=== PATIENT | female | born 1960 | race Caucasian/White ===

== ENCOUNTER 2017-04-21 08:44 | Inpatient (IN) | payer BC ==
[2017-04-10 09:32] LABS: BASOPHILS % 0.3 % (0.0-2.0); EOSINOPHILS # 0.3 10^3/ul (0.0-0.5); EOSINOPHILS % 3.6 % (0.0-7.0); HEMATOCRIT 41.9 % (37.0-47.0); HEMOGLOBIN 13.8 g/dl (12.0-16.0); LYMPHOCYTES # 2.6 10^3/ul (0.8-2.9); LYMPHOCYTES % 36.6 % (15.0-51.0); MEAN CORPUSCULAR HEMOGLOBIN 29.2 pg (29.0-33.0); MEAN CORPUSCULAR HGB CONC 32.9 g/dl (32.0-37.0); MEAN CORPUSCULAR VOLUME 88.6 fl (82.0-101.0); MEAN PLATELET VOLUME 9.1 fl (7.4-10.4); MONOCYTE # 0.4 10^3/ul (0.3-0.9); MONOCYTES % 6.1 % (0.0-11.0); NEUTROPHILS % 53.3 % (39.0-77.0); PLATELET COUNT 325 10^3/UL (140-415); RED BLOOD COUNT 4.73 10^6/ul (4.20-5.40); RED CELL DISTRIBUTION WIDTH 13.2 % (11.5-14.5)
[2017-04-10 09:43] LABS: ADD UMIC YES; UR ASCORBIC ACID NEGATIVE (NEGATIVE); UR BACTERIA FEW /HPF (NONE SEEN); UR BILIRUBIN (Dip) NEGATIVE (NEGATIVE); UR BLOOD (Dip) 2+ mg/dL (NEGATIVE); UR BUDDING YEAST FEW /HPF (NONE SEEN); UR CLARITY SLIGHTLY CLOUDY (CLEAR); UR COLOR YELLOW (YELLOW); UR GLUCOSE (Dip) NEGATIVE (NEGATIVE); UR KETONES (Dip) NEGATIVE (NEGATIVE); UR LEUKOCYTE ESTERASE (Dip) 3+ Leu/ul (NEGATIVE); UR NITRITE (Dip) NEGATIVE (NEGATIVE); UR RBC 26 /HPF (0-5); UR SPECIFIC GRAVITY (Dip) 1.017 (1.003-1.030); UR SQUAMOUS EPITHELIAL CELL FEW /HPF (FEW); UR TOTAL PROTEIN (Dip) NEGATIVE (NEGATIVE); UR UROBILINOGEN (Dip) NEGATIVE (NEGATIVE)
[2017-04-10 09:59] LABS: INR 0.95; PARTIAL THROMBOPLASTIN TIME 27.3 Sec (25.0-35.0); PROTIME 12.7 Sec (12.2-14.2)
--- NOTE | 2017-04-10 10:03 | RADRPT ---
PROCEDURE: XR Chest 1 View. CLINICAL INDICATION: Abnormal breath sounds, preop. TECHNIQUE: PA view of the chest was obtained. COMPARISON: None. FINDINGS: The heart size is within normal limits. Calcified atherosclerosis is noted in the aorta. Elevated r ight hemidiaphragm is identified. No consolidations are identified. No pneumothorax is seen. [place] us structures are intact. IMPRESSION: Calcified atherosclerosis in the aorta. Elevated right hemidiaphragm. Clear lungs. RPTAT: AA .Lopez May MD, Date Time Electronically viewed and signed by .Lopez May MD, on 04/10/2017 10:03 .P/
[2017-04-10 10:08] LABS: ALBUMIN 4.2 g/dl (3.3-4.9); ALBUMIN/GLOBULIN RATIO 1.2; BILIRUBIN,INDIRECT 0.2 mg/dl (0-1.1); BILIRUBIN,TOTAL 0.2 mg/dl (0.2-1.3); CREATININE 0.85 mg/dl (0.44-1.00); POTASSIUM 4.1 mmol/L (3.5-5.1); TOTAL PROTEIN 7.7 g/dl (6.1-8.1)
[2017-04-10 10:35] LABS: CANCER ANTIGEN 125 27.9 U/ml (0.0-35.0)
--- NOTE | 2017-04-13 11:09 | RADRPT ---
Vent Rate: 67 bpm RR Interval: 0 msec ME Interval: 158 msec QRS Duration: 84 msec QT Interval: 408 msec QTC Interval: 431 msec P-R-T [place]: 34 - 39 - 59 degrees Normal sinus rhythm Normal ECG Electronically Signed By: Tio Judd [id number]
[2017-04-21] VITALS (15 sets, daily range): BP systolic 118–146; BP diastolic 67–93; PULSE 85–100; RESP 15–31; Ht 162.6 cm; Wt 114.8 kg
[~2017-04-21] VITALS: Ht 162.6 cm; Wt 114.8 kg
[~2017-04-21 08:44] MED LIST: CEFAZOLIN 2 GM/50 ML (PMX) 50 ML IVPB SCH; D5-NS + KCL 20 MEQ 1,000 ML IV SCH; LIDOCAINE 2% (SDV) 5 ML INJ ONE; Metronidazole 500 MG in NS 100 ML IVPB SCH
[2017-04-21] MEDS ORDERED: MIDAZOLAM 1 MG/ML 2 ML INJ ONE (12:28)
[2017-04-21] MEDS ORDERED: METOCLOPRAMIDE 10 MG INJ ONE (12:28)
[2017-04-21] MEDS ORDERED: ROCURONIUM 50 MG INJ ONE ×2 (12:28→15:54)
[2017-04-21] MEDS ORDERED: PROPOFOL 20 ML ONE ×2 (12:28→14:28)
--- NOTE | 2017-04-21 12:50 | HPN ---
Date/Time of Note Date/Time of Note DATE: 04/21/17 TIME: 12:50 Interval H&P Admission Note Pt. seen H&P reviewed: No system changes DEIDRA GUZMAN MD Apr 21, 2017 12:50
--- NOTE | 2017-04-21 13:01 | HP ---
Date/Time of Note Date/Time of Note DATE: 04/21/17 TIME: 13:00 Assessment/Plan VTE Prophylaxis VTE Prophylaxis Intervention: SCD's Lines/Catheters [facility] Peripheral IV HPI/ROS Admit Date/Time Admit Date/Time Apr 21, 2017 at 09:43 Hx of Present Illness Deidra Guzman M.D. [facility] History and Physical Examination Susana Medellin Apr 17, 2017 Age:57 :1960 Physicians: Client Service Representative:Dr. Zaragoza Medical Care Evaluation Specialist Oncologist Referring MD: History of the Present Illness: This is a 57 female with a grade 1-2 endometrial cancer recently diagnosed by d/c endometrial biopsy. G 10 P 8 Ab 2 LMP: 2012 / Currently Spotting Medical History: HTN Surgical: C/S x 3 , 1959 Pyloric Stenosis Medications: 03/17/17 Xanax 0.25 mg tablet 1 tablet by mouth Select Frequency prn Flu yes, 2015, Pneumococcal yes, 2008 Colonoscopy: never Allergies: 03/17/17 Codeine Family History: Noncontributory Social History: Noncontributory Review of Systems: Negative except for above noted Physical Examination Vitals (04/17/2017): Weight 254, Height 64, BP 118/72, BMI 43.6. General: Alert. HEENT: Pupils are equal, round, reactive to light and accommodation. Neck: Supple with no masses of lymphadenopathy. Breast: Deferred due to recent examination and responsibility of primary care physician. Chest: Clear to auscultation and percussion with no rales, ronchi, or wheeze. Heart: Normal rhythm with no murmur. Abdominal exam: nontender, nondistended, no masses, no ascites. location: N/A Pelvic exam: Uterus enlgd and glubular, no masses or cul-de-sac nodularity noted Rectal: confirmatory with pelvic exam. Neurological: Grossly intact Assessment: endometrial cancer stage to be determined Plan: TLH/BSO LND possible lapartotomy. All risks and benefits of this procedure have been discussed in detail with the patient, as well as alternative treatment strategies and their implications. The patient is aware that there is some possibility of a blood transfusion and its associated risks and benefits. She wishes to proceed and gives her informed consent. Deidra Guzman M.D. PMH/Family/Social Social History Smoking Status: Never smoker Exam/Review of Systems Vital Signs Vitals Vital Signs Date Time Temp Pulse Resp B/P Pulse Ox O2 Delivery O2 Flow Rate FiO2 04/21/17 10:54 98.9 85 18 137/78 95 Room Air Medications Medications Current Medications Metronidazole 100 ml @ 100 mls/hr PREOP IVPB ; Start 04/21/17 at 06:00; Stop at 16:00 Cefazolin Sodium/ Dextrose 50 ml @ 100 mls/hr PREOP IVPB ; Start 04/21/17 at 06 :00; Stop 04/21/17 at 16:00 Potassium Chloride/Dextrose/ Sod Cl (D5-NS + KCl 20 Meq) 1,000 ml @ 100 mls/hr Q10H IV ; Start 04/21/17 at 06:00; Stop 04/21/17 at 15:59 DEIDRA GUZMAN MD Apr 21, 2017 13:01
[2017-04-21] MEDS ORDERED: FENTAnyl 50 MCG/ML VIAL ONE (13:44)
[2017-04-21] MEDS ORDERED: morphine SULFATE/PF (10 MG/10 ML) INJ ONE (14:16)
[2017-04-21] MEDS ORDERED: DEXAMETHASONE 4 MG/ML 1 ML INJ ONE (14:20)
[2017-04-21] MEDS ORDERED: ROPIVACAINE 0.2% 20 ML VIAL ONE (14:24)
[2017-04-21] MEDS ORDERED: CEFAZOLIN 1 GM INJ ONE (14:26)
[2017-04-21] MEDS ORDERED: metroNIDAZOLE 500 MG/NS (PMX) 100 ML IVPB ONE (14:26)
[2017-04-21] MEDS ORDERED: SUCCINYLCHOLINE CHLORIDE 100 MG/5 ML SYG IV ONE (14:39)
[2017-04-21] MEDS ORDERED: THROMBIN 5000 UNIT VIAL ONE ×2 (14:53→19:12)
[2017-04-21] MEDS ORDERED: METHYLENE BLUE 1% 10 ML INJ ONE (14:53)
[2017-04-21] MEDS ORDERED: METOPROLOL 5 MG INJ ONE (17:22)
[2017-04-21] MEDS ORDERED: hydrALAzine 20 MG INJ IV PRN (18:00)
[2017-04-21] MEDS ORDERED: MEPERIDINE 25 MG INJ IV PRN (18:00)
[2017-04-21] MEDS ORDERED: HYDROmorphONE (0.2 MG/ML) 10ML SYG IV PRN ×3 (18:00)
[2017-04-21] MEDS ORDERED: METOCLOPRAMIDE 10 MG INJ IV PRN (18:00)
[2017-04-21] MEDS ORDERED: ONDANSETRON 4 MG INJ IV PRN (18:00)
[2017-04-21] MEDS ORDERED: DIPHENHYDRAMINE 50 MG INJ IV PRN (18:00)
[2017-04-21] MEDS ORDERED: LABETALOL HCL 20MG INJ IV PRN (18:00)
[2017-04-21] MEDS ORDERED: ROPIVACAINE 0.5 % 30 ML VIAL ONE (19:14)
[2017-04-21] MEDS ORDERED: HEMOSTATIC MATRIX SYG ZFS ONE (19:15)
[2017-04-21] MEDS ORDERED: NEOSTIGMINE 3 MG/3 ML SYRINGE ONE (20:00)
[2017-04-21] MEDS ORDERED: GLYCOPYRROLATE 1 MG INJ ONE (20:00)
[2017-04-21] MEDS ORDERED: MEPERIDINE 100 MG INJ ONE (20:19)
[2017-04-21] MEDS ORDERED: CEFAZOLIN 1 GM in SOD CHLORIDE 0.9% 100 ML IVPB SCH (21:00)
[2017-04-21] MEDS ORDERED: morphine 2 MG INJ IV PRN (21:00)
--- NOTE | 2017-04-21 21:04 | SIPON ---
Date/Time of Note Date/Time of Note DATE: 04/21/17 TIME: 21:02 Operative Report Preoperative Diagnosis endometrial cancer Postoperative Diagnosis same with morbid obesity and ureteral stricture Operation/Procedure Performed TLH/BSO/LND and UDx2 Surgeon see signature line offset assistant press operator Nik Anesthesia: other Estimated blood loss: 250 - 300 ml's Transfusion Required none Specimen multiple Grafts/Implants none Complications none DEIDRA GUZMAN MD Apr 21, 2017 21:04
[2017-04-21] MEDS: metroNIDAZOLE 500 MG/NS (PMX) 100 ML IVPB SCH (21:07)
[2017-04-21 21:12] LABS: ADD UMIC YES; UR ASCORBIC ACID 40 mg/dL (NEGATIVE); UR BACTERIA FEW /HPF (NONE SEEN); UR BILIRUBIN (Dip) NEGATIVE (NEGATIVE); UR BLOOD (Dip) 1+ mg/dL (NEGATIVE); UR CLARITY CLEAR (CLEAR); UR COLOR YELLOW (YELLOW); UR GLUCOSE (Dip) 3+ mg/dL (NEGATIVE); UR KETONES (Dip) TRACE mg/dL (NEGATIVE); UR LEUKOCYTE ESTERASE (Dip) NEGATIVE Leu/ul (NEGATIVE); UR MUCUS FEW /HPF (NONE SEEN); UR NITRITE (Dip) NEGATIVE (NEGATIVE); UR RBC 31 /HPF (0-5); UR SPECIFIC GRAVITY (Dip) 1.014 (1.003-1.030); UR TOTAL PROTEIN (Dip) NEGATIVE (NEGATIVE); UR UROBILINOGEN (Dip) NEGATIVE (NEGATIVE)
[2017-04-21 21:33] LABS: ABNORMAL IP MESSAGE 1; BASOPHILS % 0.1 % (0.0-2.0); HEMATOCRIT 27.9 % (37.0-47.0); HEMOGLOBIN 8.7 g/dl (12.0-16.0); LYMPHOCYTES # 0.6 10^3/ul (0.8-2.9); LYMPHOCYTES % 5.6 % (15.0-51.0); MEAN CORPUSCULAR HEMOGLOBIN 29.2 pg (29.0-33.0); MEAN CORPUSCULAR HGB CONC 31.2 g/dl (32.0-37.0); MEAN CORPUSCULAR VOLUME 93.6 fl (82.0-101.0); MONOCYTE # 0.5 10^3/ul (0.3-0.9); MONOCYTES % 4.8 % (0.0-11.0); NEUTROPHIL # 9.4 10^3/ul (1.6-7.5); NEUTROPHILS % 89.1 % (39.0-77.0); PLATELET COUNT 172 10^3/UL (140-415); RED BLOOD COUNT 2.98 10^6/ul (4.20-5.40); RED CELL DISTRIBUTION WIDTH 13.3 % (11.5-14.5); WHITE BLOOD COUNT 10.5 10^3/ul (4.8-10.8)
[2017-04-21 21:38] LABS: HOLD TRANSMISSIONS 1; POSITIVE DIFF @See below
[2017-04-21] MEDS ORDERED: CEFAZOLIN 1 GM/50 ML (PMX) 50 ML IVPB ONE (21:45)
[2017-04-21] MEDS ORDERED: SOD CHLORIDE 0.9% 250 ML IV* ONE (21:48)
[2017-04-21] MEDS: FAMOTIDINE 20 MG INJ IV SCH (22:49)
[2017-04-21 23:27] LABS: INR 0.94; PROTIME 12.6 Sec (12.2-14.2)
[2017-04-21 23:28] LABS: CALCIUM 8.7 mg/dl (8.4-10.2); CREATININE 0.69 mg/dl (0.44-1.00); POTASSIUM 4.4 mmol/L (3.5-5.1)
[2017-04-22] VITALS (7 sets, daily range): BP systolic 115–136; BP diastolic 68–98; PULSE 92–101; RESP 18–20
[2017-04-22] MEDS ORDERED: CEFAZOLIN 1 GM/50 ML (PMX) 50 ML IVPB SCH
[2017-04-22] MEDS: HYDROCODONE/APAP (5/325) TAB PO PRN ×4 (01:08→18:52)
[2017-04-22] MEDS: POTASSIUM CHLORIDE 20 MEQ in LACTATED RINGER'S 1,000 ML IV SCH ×3 (01:13→15:50)
[2017-04-22] MEDS: metroNIDAZOLE 500 MG/NS (PMX) 100 ML IVPB SCH ×2 (05:06→12:16)
[2017-04-22 05:38] LABS: HEMATOCRIT 42.3 % (37.0-47.0); HEMOGLOBIN 14.2 g/dl (12.0-16.0); LYMPHOCYTES # 0.7 10^3/ul (0.8-2.9); LYMPHOCYTES % 7.7 % (15.0-51.0); MEAN CORPUSCULAR HEMOGLOBIN 28.7 pg (29.0-33.0); MEAN CORPUSCULAR HGB CONC 33.6 g/dl (32.0-37.0); MEAN CORPUSCULAR VOLUME 85.6 fl (82.0-101.0); MEAN PLATELET VOLUME 9.7 fl (7.4-10.4); MONOCYTE # 0.6 10^3/ul (0.3-0.9); NEUTROPHILS % 86.2 % (39.0-77.0); PLATELET COUNT 297 10^3/UL (140-415); RED BLOOD COUNT 4.94 10^6/ul (4.20-5.40); RED CELL DISTRIBUTION WIDTH 13.8 % (11.5-14.5); WHITE BLOOD COUNT 9.2 10^3/ul (4.8-10.8)
[2017-04-22 05:45] LABS: INR 1.02; PROTIME 13.4 Sec (12.2-14.2)
[2017-04-22] MEDS: CEFAZOLIN 1 GM/50 ML (PMX) 50 ML IVPB SCH ×2 (06:36→14:19)
[2017-04-22 06:50] LABS: CALCIUM 8.8 mg/dl (8.4-10.2); CREATININE 0.63 mg/dl (0.44-1.00); POTASSIUM 4.4 mmol/L (3.5-5.1)
[2017-04-22] MEDS: FAMOTIDINE 20 MG INJ IV SCH ×2 (09:30→20:15)
[2017-04-22] MEDS: ALPRAZOLAM 0.25 MG TAB PO PRN ×2 (11:10→21:25)
--- NOTE | 2017-04-22 11:44 | HP ---
DATE OF ADMISSION: 04/21/2017 CHIEF COMPLAINT: The patient is a 57-year-old female, with grade 1-2 endometrial cancer recently diagnosis by endometrial biopsy. The patient is being followed by Dr. Junior Robledo from a [employer] standpoint. The patient was subsequently referred to Dr. Shin. The patient was brought into the hospital and underwent laparoscopic total hysterectomy, bilateral salpingo-oophorectomy, lymph node dissection and ureter dissection. The patient still has postoperative pain, although she is trying only oral narcotics. The patient denies any chest pain or shortness of breath. No recent fever or chills. No history of focal weakness. The patient remains awake, alert. The patient did not have any leg pain or leg edema. The patient remains awake, alert, except for postoperative pain. Rest of the review of systems unremarkable. The patient does take occasional Xanax to help her sleep. PAST MEDICAL HISTORY: As stated above. SOCIAL HISTORY: No smoking. No alcohol. FAMILY HISTORY: Noncontributory. ALLERGIES: THE PATIENT STATES SEVERAL YEARS AGO SHE TOOK CODEINE AND HAD RASH, ALTHOUGH SHE IS ABLE TO TOLERATE [place] WITHOUT ANY DIFFICULTY. PHYSICAL EXAMINATION: GENERAL: Patient conscious, awake, alert. VITAL SIGNS: Temperature 98.9, pulse 76, respiration 18, blood pressure 136/75, O2 sat 98 percent on 1 L nasal cannula. HEENT: No eye discharge or redness. normal. NECK: No mass. CHEST: Fairly clear. CVS: S1, S2 normal. No murmur. ABDOMEN: Patient is status post surgery. EXTREMITIES: No edema. Pedal pulses palpable. SKIN: Without acute rash. NEUROLOGIC: Patient is awake, alert, fairly oriented, with no gross focal deficits. DATA: WBC 9.2, hemoglobin 14.2, platelet 297. Sodium 137, potassium 4.4, BUN 11, creatinine 0.6, glucose 124, calcium 8.8. IMPRESSION: Endometrial cancer, stage to be determined, status post laparoscopic hysterectomy, bilateral salpingo-oophorectomy, lymph node dissection and ureteral dissection. PLAN: Patient will be admitted on medical floor. Patient will be given clear liquid diet for now. The patient will be started on IV fluid, IV Pepcid and we will use SCDs for DVT prophylaxis. We will continue [place] and morphine for pain control. We will add senna prophylactically. We will continue Xanax on p.r.n. basis and continue IV cefazolin and Flagyl as per protocol. We will continue to follow. Dictated By: Tavares Thompson MD /nick/[email or web address] /Document#: [id number]
[2017-04-22] MEDS: SENNA TAB PO SCH ×2 (12:16→20:15)
--- NOTE | 2017-04-22 16:06 | PN ---
Date/Time of Note Date/Time of Note DATE: 04/22/17 TIME: 16:00 Assessment/Plan VTE Prophylaxis VTE Prophylaxis Intervention: SCD's Lines/Catheters IV Catheter Type (from Nrs): [place] Urinary Cath still in place: No Assessment/Plan Assessment/Plan -Endometrial cancer, stage to be determined - status post laparoscopic hysterectomy, bilateral salpingo-oophorectomy,lymph node dissection and ureteral dissection. - per surgery - [place] and morphine for pain control. - clear liquid diet for now. - IV fluid, IV Pepcid - SCDs for DVT prophylaxis. - UTI- yeast/bacteria - on Flagyl - Ceftriaxone Plan of care jonh Calvert Subjective 24 Hr Interval Summary Respiratory: no complaints Cardiovascular: no complaints Gastrointestinal: pain Genitourinary: no complaints Musculoskeletal: no complaints Exam/Review of Systems Vital Signs Vitals Vital Signs Date Time Temp Pulse Resp B/P Pulse Ox O2 Delivery O2 Flow Rate FiO2 04/22/17 08:30 98.9 76 18 136/75 96 04/22/17 08:00 Nasal Cannula 1.0 Intake and Output 04/21/17 04/21/17 04/22/17 15:00 23:00 07:00 Intake Total 2300 ml 985 ml Output Total 650 ml 900 ml Balance 1650 ml 85 ml Exam Constitutional: alert, well developed Respiratory: clear to auscultation, diminished breath sounds Cardiovascular: nl pulses, regular rate and rhythm Gastrointestinal: other, soft Musculoskeletal: nl extremities to inspection Results Result Diagram: 04/22/17 0440 04/22/17 0439 Results 24 hrs Laboratory Tests Test 04/21/17 20:45 04/21/17 21:00 04/21/17 22:27 04/22/17 04:39 Urine Color YELLOW Urine Clarity CLEAR Urine pH 5.0 Urine Specific [place] 1.014 Urine Ketones TRACE A Urine Nitrite NEGATIVE Urine Bilirubin NEGATIVE Urine Urobilinogen NEGATIVE Urine Leukocyte Esterase NEGATIVE Urine Microscopic RBC 31 H Urine Microscopic WBC 1 Urine Bacteria FEW A Urine Mucus FEW A Urine Hemoglobin 1+ H Urine Glucose 3+ H Urine Total Protein NEGATIVE White Blood Count 10.5 # Red Blood Count 2.98 #L Hemoglobin 8.7 #L Hematocrit 27.9 #L Mean Corpuscular Volume 93.6 Mean Corpuscular Hemoglobin 29.2 Mean Corpuscular Hemoglobin Concent 31.2 L Red Cell Distribution Width 13.3 Platelet Count 172 # Mean Platelet Volume 9.0 Neutrophils % 89.1 H Lymphocytes % 5.6 L Monocytes % 4.8 Eosinophils % 0.0 Basophils % 0.1 Nucleated Red Blood Cells % 0.0 Neutrophils # 9.4 H Lymphocytes # 0.6 L Monocytes # 0.5 Eosinophils # 0.0 Basophils # 0.0 Nucleated Red Blood Cells # 0.0 CBC Results Faxed/Phoned 1 *H Sodium Level 137 137 Potassium Level 4.4 4.4 Chloride Level 99 104 Carbon Dioxide Level 24 25 Anion Gap 18 H 12 Blood Urea Nitrogen 13 11 Creatinine 0.69 0.63 Glucose Level 222 H 124 # Calcium Level 8.7 8.8 Prothrombin Time 12.6 13.4 Prothrombin Time Ratio 1.0 1.0 INR International Normalized Ratio 0.94 1.02 Test 04/22/17 04:40 White Blood Count 9.2 Red Blood Count 4.94 # Hemoglobin 14.2 # Hematocrit 42.3 # Mean Corpuscular Volume 85.6 Mean Corpuscular Hemoglobin 28.7 L Mean Corpuscular Hemoglobin Concent 33.6 Red Cell Distribution Width 13.8 Platelet Count 297 # Mean Platelet Volume 9.7 Neutrophils % 86.2 H Lymphocytes % 7.7 L Monocytes % 6.0 Eosinophils % 0.0 Basophils % 0.0 Nucleated Red Blood Cells % 0.0 Neutrophils # 8.0 H Lymphocytes # 0.7 L Monocytes # 0.6 Eosinophils # 0.0 Basophils # 0.0 Nucleated Red Blood Cells # 0.0 Medications Medications Current Medications Metronidazole (Flagyl 500 Mg (Pmx)) 100 ml @ 100 mls/hr Q8H IVPB Last administered on 04/22/17 12:16; Admin Dose 100 MLS/HR; Start 04/21/17 at 21:00 ; Stop 04/22/17 at 20:59 Morphine Sulfate (morphine) 2 mg Q2H PRN IV PAIN LEVEL 6-10; Start 04/21/17 at 21:00 Acetaminophen/ Hydrocodone Bitart ([place] (5/325)) 1 tab Q6H PRN PO PAIN LEVEL 6 -10 Last administered on 04/22/17 12:51; Admin Dose 1 TAB; Start 04/21/17 at 21 :00 Famotidine 20 mg 20 mg Q12 IV Last administered on 04/22/17 09:30; Admin Dose 20 MG; Start 04/21/17 at 21:00 Potassium Chloride/Lactated Ringer's (KCl/Lr) 1,010 ml @ 100 mls/hr Q10H6M IV Last administered on 04/22/17 15:50; Admin Dose 100 MLS/HR; Start 04/21/17 at 20:35 Alprazolam (Xanax) 0.25 mg BID PRN PO ANXIETY Last administered on 04/22/17 11 :10; Admin Dose 0.25 MG; Start 04/22/17 at 11:00 Senna (Senokot) 2 tab BID PO Last administered on 04/22/17 12:16; Admin Dose 2 TAB; Start 04/22/17 at 11:30 MEGHAN SOLIMAN Apr 22, 2017 16:06
--- NOTE | 2017-04-22 18:49 | PN ---
Date/Time of Note Date/Time of Note DATE: 04/22/17 TIME: 18:44 Assessment/Plan VTE Prophylaxis VTE Prophylaxis Intervention: SCD's Lines/Catheters IV Catheter Type (from Nrs): Peripheral IV Urinary Cath still in place: No Assessment/Plan Chief Complaint/Hosp Course Endometrial Cancer Problems: Assessment/Plan A- doing well P- adv diet and decrease IV. Discussed surgery in detail. Subjective 24 Hr Interval Summary Free Text/Dictation Pain well controlled and suggestion of flatus. Not OOB. Exam/Review of Systems Vital Signs Vitals Vital Signs Date Time Temp Pulse Resp B/P Pulse Ox O2 Delivery O2 Flow Rate FiO2 04/22/17 16:09 97.9 83 20 115/68 96 04/22/17 08:00 Nasal Cannula 1.0 Intake and Output 04/21/17 04/21/17 04/22/17 15:00 23:00 07:00 Intake Total 2300 ml 985 ml Output Total 650 ml 900 ml Balance 1650 ml 85 ml Exam Resp- clear CVS- NSR Abd- soft, NT, clean Ext- NT no edema Results Result Diagram: 04/22/17 0440 04/22/17 0439 Results 24 hrs Laboratory Tests Test 04/21/17 20:45 04/21/17 21:00 04/21/17 22:27 04/22/17 04:39 Urine Color YELLOW Urine Clarity CLEAR Urine pH 5.0 Urine Specific [place] 1.014 Urine Ketones TRACE A Urine Nitrite NEGATIVE Urine Bilirubin NEGATIVE Urine Urobilinogen NEGATIVE Urine Leukocyte Esterase NEGATIVE Urine Microscopic RBC 31 H Urine Microscopic WBC 1 Urine Bacteria FEW A Urine Mucus FEW A Urine Hemoglobin 1+ H Urine Glucose 3+ H Urine Total Protein NEGATIVE White Blood Count 10.5 # Red Blood Count 2.98 #L Hemoglobin 8.7 #L Hematocrit 27.9 #L Mean Corpuscular Volume 93.6 Mean Corpuscular Hemoglobin 29.2 Mean Corpuscular Hemoglobin Concent 31.2 L Red Cell Distribution Width 13.3 Platelet Count 172 # Mean Platelet Volume 9.0 Neutrophils % 89.1 H Lymphocytes % 5.6 L Monocytes % 4.8 Eosinophils % 0.0 Basophils % 0.1 Nucleated Red Blood Cells % 0.0 Neutrophils # 9.4 H Lymphocytes # 0.6 L Monocytes # 0.5 Eosinophils # 0.0 Basophils # 0.0 Nucleated Red Blood Cells # 0.0 CBC Results Faxed/Phoned 1 *H Sodium Level 137 137 Potassium Level 4.4 4.4 Chloride Level 99 104 Carbon Dioxide Level 24 25 Anion Gap 18 H 12 Blood Urea Nitrogen 13 11 Creatinine 0.69 0.63 Glucose Level 222 H 124 # Calcium Level 8.7 8.8 Prothrombin Time 12.6 13.4 Prothrombin Time Ratio 1.0 1.0 INR International Normalized Ratio 0.94 1.02 Test 04/22/17 04:40 White Blood Count 9.2 Red Blood Count 4.94 # Hemoglobin 14.2 # Hematocrit 42.3 # Mean Corpuscular Volume 85.6 Mean Corpuscular Hemoglobin 28.7 L Mean Corpuscular Hemoglobin Concent 33.6 Red Cell Distribution Width 13.8 Platelet Count 297 # Mean Platelet Volume 9.7 Neutrophils % 86.2 H Lymphocytes % 7.7 L Monocytes % 6.0 Eosinophils % 0.0 Basophils % 0.0 Nucleated Red Blood Cells % 0.0 Neutrophils # 8.0 H Lymphocytes # 0.7 L Monocytes # 0.6 Eosinophils # 0.0 Basophils # 0.0 Nucleated Red Blood Cells # 0.0 Medications Medications Current Medications Metronidazole (Flagyl 500 Mg (Pmx)) 100 ml @ 100 mls/hr Q8H IVPB Last administered on 04/22/17 12:16; Admin Dose 100 MLS/HR; Start 04/21/17 at 21:00 ; Stop 04/22/17 at 20:59 Morphine Sulfate (morphine) 2 mg Q2H PRN IV PAIN LEVEL 6-10; Start 04/21/17 at 21:00 Acetaminophen/ Hydrocodone Bitart ([place] (5/325)) 1 tab Q6H PRN PO PAIN LEVEL 6 -10 Last administered on 04/22/17 12:51; Admin Dose 1 TAB; Start 04/21/17 at 21 :00 Famotidine 20 mg 20 mg Q12 IV Last administered on 04/22/17 09:30; Admin Dose 20 MG; Start 04/21/17 at 21:00 Potassium Chloride/Lactated Ringer's (KCl/Lr) 1,010 ml @ 100 mls/hr Q10H6M IV Last administered on 04/22/17 15:50; Admin Dose 100 MLS/HR; Start 04/21/17 at 20:35 Alprazolam (Xanax) 0.25 mg BID PRN PO ANXIETY Last administered on 04/22/17 11 :10; Admin Dose 0.25 MG; Start 04/22/17 at 11:00 Senna (Senokot) 2 tab BID PO Last administered on 04/22/17 12:16; Admin Dose 2 TAB; Start 04/22/17 at 11:30 DEIDRA GUZMAN MD Apr 22, 2017 18:49
[2017-04-22] MEDS ORDERED: SENNA TAB PO SCH (21:00)
[2017-04-22] MEDS: IBUPROFEN 800 MG TAB PO SCH (21:25)
[2017-04-23] MEDS: IBUPROFEN 800 MG TAB PO SCH ×3 (02:07→12:55)
[2017-04-23 02:30] VITALS: BP 133/80; RESP 19
[2017-04-23 05:30] LABS: BASOPHILS % 0.1 % (0.0-2.0); EOSINOPHILS # 0.1 10^3/ul (0.0-0.5); EOSINOPHILS % 0.6 % (0.0-7.0); HEMATOCRIT 38.4 % (37.0-47.0); HEMOGLOBIN 12.7 g/dl (12.0-16.0); LYMPHOCYTES # 2.5 10^3/ul (0.8-2.9); LYMPHOCYTES % 29.1 % (15.0-51.0); MEAN CORPUSCULAR HEMOGLOBIN 28.9 pg (29.0-33.0); MEAN CORPUSCULAR HGB CONC 33.1 g/dl (32.0-37.0); MEAN CORPUSCULAR VOLUME 87.5 fl (82.0-101.0); MEAN PLATELET VOLUME 9.5 fl (7.4-10.4); MONOCYTE # 0.7 10^3/ul (0.3-0.9); MONOCYTES % 8.1 % (0.0-11.0); NEUTROPHIL # 5.4 10^3/ul (1.6-7.5); PLATELET COUNT 266 10^3/UL (140-415); RED BLOOD COUNT 4.39 10^6/ul (4.20-5.40); RED CELL DISTRIBUTION WIDTH 13.9 % (11.5-14.5); WHITE BLOOD COUNT 8.7 10^3/ul (4.8-10.8)
[2017-04-23 05:51] LABS: CALCIUM 8.7 mg/dl (8.4-10.2); CREATININE 0.74 mg/dl (0.44-1.00); POTASSIUM 3.9 mmol/L (3.5-5.1)
[2017-04-23] MEDS: POTASSIUM CHLORIDE 20 MEQ in LACTATED RINGER'S 1,000 ML IV SCH ×2 (05:55→18:41)
[2017-04-23 07:56] VITALS: BP 138/82; RESP 18
[2017-04-23] MEDS: SENNA TAB PO SCH ×2 (09:00→21:08)
[2017-04-23] MEDS: FAMOTIDINE 20 MG INJ IV SCH ×2 (09:00→23:01)
[2017-04-23] MEDS: ALPRAZOLAM 0.25 MG TAB PO PRN ×2 (09:03→21:11)
[2017-04-23] MEDS: HYDROCODONE/APAP (5/325) TAB PO PRN (09:04)
--- NOTE | 2017-04-23 14:32 | PN ---
Date/Time of Note Date/Time of Note DATE: 04/23/17 TIME: 14:23 Assessment/Plan VTE Prophylaxis VTE Prophylaxis Intervention: SCD's Lines/Catheters IV Catheter Type (from Nrsg): Peripheral IV Urinary Cath still in place: No Assessment/Plan Assessment/Plan -Endometrial cancer, stage to be determined - status post laparoscopic hysterectomy, bilateral salpingo-oophorectomy,lymph node dissection and ureteral dissection. - per surgery - [place] and morphine for pain control- patient doesn't like [place]- will Change to Tramadol - clear liquid diet for now. - IV fluid, IV Pepcid - SCDs for DVT prophylaxis. - UTI- yeast/bacteria - on Flagyl - Ceftriaxone Plan of care dw DR Calvert Subjective 24 Hr Interval Summary Free Text/Dictation afebrile, patient is on [place] and morphine for pain control- patient doesn't like [place]- will Change to Tramadol. no new issues reported, dw staff Respiratory: no complaints Cardiovascular: no complaints Gastrointestinal: pain Genitourinary: no complaints Musculoskeletal: no complaints Skin: no complaints Neurologic: no complaints Exam/Review of Systems Vital Signs Vitals Vital Signs Date Time Temp Pulse Resp B/P Pulse Ox O2 Delivery O2 Flow Rate FiO2 04/23/17 08:00 Nasal Cannula 2.0 04/23/17 07:56 98.0 82 18 138/82 95 Intake and Output 04/22/17 04/22/17 04/23/17 15:00 23:00 07:00 Intake Total 800 ml 580 ml 1300 ml Balance 800 ml 580 ml 1300 ml Exam Constitutional: alert, obese, oriented Respiratory: clear to auscultation, diminished breath sounds Cardiovascular: nl pulses, regular rate and rhythm Gastrointestinal: other (surgical abdomen), soft Musculoskeletal: nl extremities to inspection Extremities: normal pulses Neurological: nl mental status, nl speech Results Result Diagram: 04/23/1742404/23/17424 Results 24 hrs Laboratory Tests Test 04/23/17 04:25 White Blood Count 8.7 Red Blood Count 4.39 Hemoglobin 12.7 Hematocrit 38.4 Mean Corpuscular Volume 87.5 Mean Corpuscular Hemoglobin 28.9 L Mean Corpuscular Hemoglobin Concent 33.1 Red Cell Distribution Width 13.9 Platelet Count 266 Mean Platelet Volume 9.5 Neutrophils % 62.0 Lymphocytes % 29.1 Monocytes % 8.1 Eosinophils % 0.6 Basophils % 0.1 Nucleated Red Blood Cells % 0.0 Neutrophils # 5.4 Lymphocytes # 2.5 Monocytes # 0.7 Eosinophils # 0.1 Basophils # 0.0 Nucleated Red Blood Cells # 0.0 Sodium Level 138 Potassium Level 3.9 Chloride Level 105 Carbon Dioxide Level 31 Anion Gap 6 L Blood Urea Nitrogen 12 Creatinine 0.74 Glucose Level 105 Calcium Level 8.7 Medications Medications Current Medications Morphine Sulfate (morphine) 2 mg Q2H PRN IV PAIN LEVEL 6-10; Start 04/21/17 at 21:00 Acetaminophen/ Hydrocodone Bitart ([place] (5/325)) 1 tab Q6H PRN PO PAIN LEVEL 6 -10 Last administered on 04/23/17 09:04; Admin Dose 1 TAB; Start 04/21/17 at 21 :00 Famotidine 20 mg 20 mg Q12 IV Last administered on 04/23/17 09:00; Admin Dose 20 MG; Start 04/21/17 at 21:00 Potassium Chloride/Lactated Ringer's (KCl/Lr) 1,010 ml @ 70 mls/hr [id number] IV Last administered on 04/23/17 05:55; Admin Dose 70 MLS/HR; Start 04/21/17 at 20 :35 Alprazolam (Xanax) 0.25 mg BID PRN PO ANXIETY Last administered on 04/23/17 09 :03; Admin Dose 0.25 MG; Start 04/22/17 at 11:00 Senna (Senokot) 2 tab BID PO Last administered on 04/23/17 09:00; Admin Dose 2 TAB; Start 04/22/17 at 11:30 Ibuprofen (Motrin) 800 mg Q6 PO Last administered on 04/23/17 12:55; Admin Dose 800 MG; Start 04/22/17 at 21:29 Simethicone (Mylicon) 80 mg Q4 PRN PO DISTENSION/GAS/BLOATING Last administered on 04/23/17 12:59; Admin Dose 80 MG; Start 04/23/17 at 11:00 MEGHAN SOLIMAN Apr 23, 2017 14:32
[2017-04-23] MEDS: KETOROLAC 30 MG INJ IV PRN ×2 (16:37→23:01)
--- NOTE | 2017-04-23 17:03 | PN ---
Date/Time of Note Date/Time of Note DATE: 04/23/17 TIME: 17:00 Assessment/Plan VTE Prophylaxis VTE Prophylaxis Intervention: SCD's Lines/Catheters IV Catheter Type (from Nrs): Peripheral IV Urinary Cath still in place: No Assessment/Plan Chief Complaint/Hosp Course Endometrial Cancer Problems: Assessment/Plan A- improved P- will adv diet and possibly home tomorrow if OOB more or Tue Subjective 24 Hr Interval Summary Free Text/Dictation + flatus , feels better but minimally OOB. Exam/Review of Systems Vital Signs Vitals Vital Signs Date Time Temp Pulse Resp B/P Pulse Ox O2 Delivery O2 Flow Rate FiO2 04/23/17 08:00 Nasal Cannula 2.0 04/23/17 07:56 98.0 82 18 138/82 95 Intake and Output 04/22/17 04/22/17 04/23/17 15:00 23:00 07:00 Intake Total 800 ml 580 ml 1300 ml Balance 800 ml 580 ml 1300 ml Exam Resp- clear CVS- NSR Abd- soft, nt Ext- NT no edema Results Result Diagram: 04/23/17 0425 04/23/17 0425 Results 24 hrs Laboratory Tests Test 04/23/17 04:25 White Blood Count 8.7 Red Blood Count 4.39 Hemoglobin 12.7 Hematocrit 38.4 Mean Corpuscular Volume 87.5 Mean Corpuscular Hemoglobin 28.9 L Mean Corpuscular Hemoglobin Concent 33.1 Red Cell Distribution Width 13.9 Platelet Count 266 Mean Platelet Volume 9.5 Neutrophils % 62.0 Lymphocytes % 29.1 Monocytes % 8.1 Eosinophils % 0.6 Basophils % 0.1 Nucleated Red Blood Cells % 0.0 Neutrophils # 5.4 Lymphocytes # 2.5 Monocytes # 0.7 Eosinophils # 0.1 Basophils # 0.0 Nucleated Red Blood Cells # 0.0 Sodium Level 138 Potassium Level 3.9 Chloride Level 105 Carbon Dioxide Level 31 Anion Gap 6 L Blood Urea Nitrogen 12 Creatinine 0.74 Glucose Level 105 Calcium Level 8.7 Medications Medications Current Medications Morphine Sulfate (morphine) 2 mg Q2H PRN IV PAIN LEVEL 6-10; Start 04/21/17 at 21:00 Famotidine 20 mg 20 mg Q12 IV Last administered on 04/23/17t 09:00; Admin Dose 20 MG; Start 04/21/17 at 21:00 Potassium Chloride/Lactated Ringer's (KCl/Lr) 1,010 ml @ 70 mls/hr [id number] IV Last administered on 04/23/17 05:55; Admin Dose 70 MLS/HR; Start 04/21/17 at 20 :35 Alprazolam (Xanax) 0.25 mg BID PRN PO ANXIETY Last administered on 04/23/17 09 :03; Admin Dose 0.25 MG; Start 04/22/17 at 11:00 Senna (Senokot) 2 tab BID PO Last administered on 04/23/17 09:00; Admin Dose 2 TAB; Start 04/22/17 at 11:30 Ibuprofen (Motrin) 800 mg Q6 PO Last administered on 04/23/17 12:55; Admin Dose 800 MG; Start 04/22/17 at 21:29; Status Future hold Simethicone (Mylicon) 80 mg Q4 PRN PO DISTENSION/GAS/BLOATING Last administered on 04/23/17 16:37; Admin Dose 80 MG; Start 04/23/17 at 11:00 Tramadol HCl (Ultram) 50 mg Q6H PRN PO PAIN LEVEL 7-10; Start 04/23/17 at 14:30 Ketorolac Tromethamine (Toradol) 30 mg Q6H PRN IV PAIN Last administered on 16:37; Admin Dose 30 MG; Start 04/23/17 at 17:00; Stop 04/26/17 at 16:59 DEIDRA GUZMAN MD Apr 23, 2017 17:03
[2017-04-23] MEDS: traMADol 50 MG TAB PO PRN (18:21)
[2017-04-23 19:22] VITALS: BP 137/77; RESP 18
--- NOTE | 2017-04-23 20:23 | OPR ---
Date/Time of Note Date/Time of Note DATE: 04/23/17 TIME: 20:22 Operative Report Free Text/Dictation OPERATIVE REPORT [facility] Name: Susana Medellin Medical Date: 04/21/17 Preoperative Diagnosis: 1-Endometrial cancer grade 1-2 Postoperative Diagnosis: Endometrial cancer with final pathology pending Procedures: 1- Total laparoscopic hysterectomy with bilateral salpingoophorectomy 2- Bilateral ureteral dissection with repositioning 3- Laparoscopic pelvic and aortic lymph node dissection 4- Retroperitoneal uterine artery ligation adjacent to hypogastric artery Surgeon: Dr. Guzman B2B Sales Representative: Dr. Junior Zaragoza Anaesthesia: General with regional Indications for Procedure: This 57 year old patient had a grade 1-2 endometrial cancer without evidence of metastatic disease preoperatively and after discussions of options with risks and benefits it was determined that a laparoscopic hysterectomy with bilateral salpingoophorectomy and pelvic/aortic lymph node dissection would be completed for the purposes of treatment and possibly planning additional adjuvant therapy. The pelvic and LND was performed in lieu of final grading not being equivalent to preoperative D&C grade 18-25% of the time and frozen section not being more that 80% reliable in determining grade and depth of invasion; therefore complete staging is performed to determine postoperative management unless there is a significant contraindication. Intraoperative Findings and Summary of Procedure: Name: Susana Medellin Medical After placing the Trocars and exploration we noted compromised exposure due to morbid obesity with significant adhesions of the adnexia to the sidewalls. The TLH/BSO was then performed without incident but required a ureteral dissection due to anatomic issues of the adnexia adherent to the sidewalls and uterine enlargement due to possible old fibroids vs large tumor and cervical expansion with retroperitoneal uterine artery ligation adjacent to hypogastric artery for required hemostasis, with the laparoscopic LND being subsequently performed with a finding of grossly negative nodes pathology pending. The patient will stay a minimum of one night to observe for recovery of from anesthesia and confirm stable hemoglobin and hematocrit with the necessity of confirmation of some GI recovery and probably need an addition night as well. Findings and Procedure: After being prepped and draped in the usual manner an EEA sizer and pneumo- occluder was inserted vaginally. A 5-millimeter trocar was then placed periumbilically with omental adhesions densely adherent to the anterior abdominal noted. Subsequently, we insufflated and placed two 12- millimeter trocars laterally and a 12-millimeter trocar suprapubically, as well as an additional 12-mm trocar cephlad to the umbilicus. At this time omental adhesions densely adherent to the anterior abdominal wall that were lysed with the Thunderbeat and Omni multiple pelvic adhesions were lysed with sharp dissection and the Omni if not adjacent to serosa. Subsequently we explored and noted a an enlarged irregular uterus with long lower uterine segment and some cervical expansion with adnexia adherent to the sidewalls due to apparent inflammation and old scar tissue. Initially the right round ligament was cauterized and transected with the Thunderbeat and the retroperitoneal space further opened parallel to the IP ligament an laterally with the same devise. The right ureter was identified and due to the aforementioned distortion from adherent adnexia was dissected laterally with Name: Susana [facility] the Omni and the endo-dissector. After lateralizing the ureter the uterine artery was identified and clipped with the Thunderbeat adjacent to the hypogastric artery due to the uterine enlargement and hypervascularity lateral to the ureter. Hence, a space was developed the broad ligament and the right IP ligament was cauterized and transected with a Thunderbeat after which the uterus was retracted medially and the bladder flap was partly developed with the Gyrus bipolar cutting forceps and the Omni. We then used a 10-mm ratcheted endo-grasper placed through the 12-mm suprapubic trocar to manipulate the uterus and with the EEA sizer uterus was retracted and left round ligament was cauterized and transected with the Thunderbeat and the retroperitoneal space further opened parallel to the IP ligament an laterally with the same devise. The left ureter was identified and due to the aforementioned distortion was dissected laterally with the Omni and the endo-dissector as done contralaterally. After lateralizing the ureter the uterine artery was identified and clipped with the Thunderbeat adjacent to the hypogastric artery due to the uterine enlargement and hypervascularity lateral to the ureter. Hence, a space was developed in the broad ligament and the left IP ligament was cauterized and transected with a Thunderbeat after which the uterus was retracted medially, allowing development or the bladder flap uneventfully with a Thunderbeat and blunt dissection. Subsequently, the right uterine artery was transected with a Thunderbeat perpendicular to the distal lower uterine segment and the Cardinal ligament and utero-sacral ligament were both transected with an Omni and Thunderbeat parallel to the lower uterine segment and cervix. An identical series of steps were taken on the left side. The anterior and posterior colpotomies were accomplished with a Thunderbeat anteriorly and posteriorly, and continued around the sides as the specimen was removed through the vagina uneventfully. The vagina was closed with interrupted 0 Vicryl suture and continuous 2-0 Stratafix suture. At this time the pelvic and aortic LND were completed after confirming hemostasis. Initially a fan retractor was used for exposure and secured to the Lance arm and all lymph node tissue adjacent to the right external iliac artery and vein, hypogastric artery and vein, as well as obturator fossa were removed with sharp and blunt dissection, using the Thunderbeat or Gyrus bipolar Name: [facility] Omni for hemostasis and lymphostasis. The greyson tissue was grasped and subsequently placed under tractions with the Omni and the Thunderbeat then being used for the hemostasis and lymphostasis in the process of removal. The dissection was continued to include greyson tissue adjacent to the common iliac vessels. The obturator nerve was identified and all adjacent greyson tissue removed with blunt dissection, with the Thunderbeat or Gyrus bipolar Omni used for lymphostasis and hemostasis as needed. The fan retractors were adjusted in that a suprapubically placed fan retracted the broad ligament and ureter with ileum while the right lateral trocar was used for a fan to retract the cecum and ascending colon allowing any greyson tissue adjacent to the vena cava, as well as aorto-caval nodes to be removed using identical technique. Elevator Repairer vessels were addressed with the Thunderbeat or Gyrus bipolar Omni. At this time we placed the fan retractors for contralateral exposure. Subsequently, all lymph node tissue adjacent to the left external iliac artery and vein, hypogastric artery and vein, as well as obturator fossa were removed with sharp and blunt dissection, the Thunderbeat or Gyrus bipolar Omni for hemostasis and lymphostasis, with a technique identical to the right side. The dissection was continued to include greyson tissue adjacent to the common iliac vessels. Subsequently, the fan retractors were adjusted and any gresyon tissue adjacent to the aorta were dissected using similar technique. After irrigating and assuring hemostasis the 12 millimeter trocars were removed and the fascia was closed with 0-vicryl using an endo-close devise. The gas was removed and the skin of all sites then closed with subcutaneous 2-0 Vicryl suture and subcuticular 4-0 Monocryl suture. The EBL was 300cc and the patient tolerated the procedure well and left the OR in good condition. Deidra Guzman M.D. Surgeon see signature line Anesthesia Type: other Estimated Blood Loss: 250 - 300 ml's DEIDRA GUZMAN MD Apr 23, 2017 20:23
[2017-04-24 02:11] VITALS: BP 155/84; RESP 16
[2017-04-24] MEDS: traMADol 50 MG TAB PO PRN ×3 (04:00→16:01)
[2017-04-24 05:54] LABS: BASOPHILS % 0.4 % (0.0-2.0); EOSINOPHILS # 0.4 10^3/ul (0.0-0.5); EOSINOPHILS % 4.5 % (0.0-7.0); HEMATOCRIT 38.8 % (37.0-47.0); HEMOGLOBIN 12.4 g/dl (12.0-16.0); LYMPHOCYTES # 2.7 10^3/ul (0.8-2.9); LYMPHOCYTES % 33.2 % (15.0-51.0); MEAN CORPUSCULAR HEMOGLOBIN 28.4 pg (29.0-33.0); MEAN PLATELET VOLUME 9.7 fl (7.4-10.4); MONOCYTE # 0.5 10^3/ul (0.3-0.9); MONOCYTES % 6.2 % (0.0-11.0); NEUTROPHIL # 4.4 10^3/ul (1.6-7.5); NEUTROPHILS % 55.5 % (39.0-77.0); PLATELET COUNT 246 10^3/UL (140-415); RED BLOOD COUNT 4.36 10^6/ul (4.20-5.40); RED CELL DISTRIBUTION WIDTH 13.6 % (11.5-14.5)
[2017-04-24 06:31] LABS: CALCIUM 8.7 mg/dl (8.4-10.2); CREATININE 0.71 mg/dl (0.44-1.00); POTASSIUM 3.8 mmol/L (3.5-5.1)
[2017-04-24 08:02] VITALS: BP 120/60; RESP 18
--- NOTE | 2017-04-24 08:11 | PN ---
Date/Time of Note Date/Time of Note DATE: 04/22/17 TIME: 10:08 Anesthesia note: A 57 byear female s/p epidural duramorpeh , GA pod #1 s/p lap hysterectomy BSO peklvic aortic dissection is doing fine. no headache, itching, n/V. back is clean . care per surgery tea Assessment/Plan VTE Prophylaxis VTE Prophylaxis Intervention: ambulation Lines/Catheters IV Catheter Type (from Nrs): Peripheral IV Urinary Cath still in place: No Exam/Review of Systems Vital Signs Vitals Vital Signs Date Time Temp Pulse Resp B/P Pulse Ox O2 Delivery O2 Flow Rate FiO2 04/24/17 08:02 98.2 76 18 120/60 95 04/23/17 08:00 Nasal Cannula 2.0 Intake and Output 04/23/17 04/23/17 04/24/17 15:00 23:00 07:00 Intake Total 2070 ml 1517.5 ml Output Total 1000 ml Balance 1070 ml 1517.5 ml Results Result Diagram: 04/24/17 0438 04/24/17 0437 Results 24 hrs Laboratory Tests Test 04/24/17 04:37 04/24/17 04:38 Sodium Level 139 Potassium Level 3.8 Chloride Level 105 Carbon Dioxide Level 31 Anion Gap 7 L Blood Urea Nitrogen 10 Creatinine 0.71 Glucose Level 88 Calcium Level 8.7 White Blood Count 8.0 Red Blood Count 4.36 Hemoglobin 12.4 Hematocrit 38.8 Mean Corpuscular Volume 89.0 Mean Corpuscular Hemoglobin 28.4 L Mean Corpuscular Hemoglobin Concent 32.0 Red Cell Distribution Width 13.6 Platelet Count 246 Mean Platelet Volume 9.7 Neutrophils % 55.5 Lymphocytes % 33.2 Monocytes % 6.2 Eosinophils % 4.5 Basophils % 0.4 Nucleated Red Blood Cells % 0.0 Neutrophils # 4.4 Lymphocytes # 2.7 Monocytes # 0.5 Eosinophils # 0.4 Basophils # 0.0 Nucleated Red Blood Cells # 0.0 Medications Medications Current Medications Morphine Sulfate (morphine) 2 mg Q2H PRN IV PAIN LEVEL 6-10; Start 04/21/17 at 21:00 Famotidine 20 mg 20 mg Q12 IV Last administered on 04/23/17t 23:01; Admin Dose 20 MG; Start 04/21/17 at 21:00 Potassium Chloride/Lactated Ringer's (KCl/Lr) 1,010 ml @ 70 mls/hr [id number] IV Last administered on 04/23/17 18:41; Admin Dose 70 MLS/HR; Start 04/21/17 at 20 :35 Alprazolam (Xanax) 0.25 mg BID PRN PO ANXIETY Last administered on 04/23/17 21 :11; Admin Dose 0.25 MG; Start 04/22/17 at 11:00 Senna (Senokot) 2 tab BID PO Last administered on 04/23/17 21:08; Admin Dose 2 TAB; Start 04/22/17 at 11:30 Ibuprofen (Motrin) 800 mg Q6 PO Last administered on 04/23/17 12:55; Admin Dose 800 MG; Start 04/22/17 at 21:29; Status Future hold Simethicone (Mylicon) 80 mg Q4 PRN PO DISTENSION/GAS/BLOATING Last administered on 04/24/17 06:23; Admin Dose 80 MG; Start 04/23/17 at 11:00 Tramadol HCl (Ultram) 50 mg Q6H PRN PO PAIN LEVEL 7-10 Last administered on 04:00; Admin Dose 50 MG; Start 04/23/17 at 14:30 Ketorolac Tromethamine (Toradol) 30 mg Q6H PRN IV PAIN Last administered on 23:01; Admin Dose 30 MG; Start 04/23/17 at 17:00; Stop 04/26/17 at 16:59 VESTA DARDEN MD Apr 24, 2017 08:11
[2017-04-24] MEDS: KETOROLAC 30 MG INJ IV PRN ×2 (08:32→14:23)
[2017-04-24] MEDS: FAMOTIDINE 20 MG INJ IV SCH (08:32)
[2017-04-24] MEDS: SENNA TAB PO SCH (09:00)
[2017-04-24] MEDS: POTASSIUM CHLORIDE 20 MEQ in LACTATED RINGER'S 1,000 ML IV SCH (11:11)
[2017-04-24] MEDS ORDERED: TRAM50TA2 PO (16:30)
--- NOTE | 2017-04-24 18:54 | DS ---
Date/Time of Note Date/Time of Note DATE: 04/24/17 TIME: 18:51 Discharge Summary Admission/Discharge Info Admit Date/Time Apr 21, 2017 at 09:43 Discharge Date/Time Apr 24, 2017 at 18:00 Patient Condition: Stable Hx of Present Illness The patient is a 57-year-old female, with grade 1-2 endometrial cancer recently diagnosis by endometrial biopsy. The patient is being followed by Dr. Junior Robledo from a [employer] standpoint. The patient was subsequently referred to Dr. Shin. The patient was brought into the hospital and underwent laparoscopic total hysterectomy, bilateral salpingo-oophorectomy, lymph node dissection and ureter dissection. The patient still has postoperative pain, although she is trying only oral narcotics. The patient denies any chest pain or shortness of breath. No recent fever or chills. No history of focal weakness. The patient remains awake, alert. The patient did not have any leg pain or leg edema. The patient remains awake, alert, except for postoperative pain. Rest of the review of systems unremarkable. The patient does take occasional Xanax to help her sleep. Hospital Course Endometrial cancer, stage to be determined, status post laparoscopic hysterectomy, bilateral salpingo-oophorectomy, lymph node dissection and ureteral dissection. Post operative pain was controlled with Ultram and Toradol since patient has a codeine allergy. Patient condition improved and she was discharged home with prescription for Ultram given by surgeon Home Meds Active Scripts Tramadol HCl (Tramadol HCl) 50 Mg Tablet, 50 MG PO Q6H Y for PAIN LEVEL 7-10, # 30 TAB Prov:JENNIFERADDI 04/24/17 Follow-up Plan Follow-up with Dr. Genevieve Boo in 1-2 weeks Primary Care Provider Not On Staff Doctor Pending Labs Laboratory Tests Test 04/24/17 04:37 04/24/17 04:38 Sodium Level 139mmol/L (135-144) Potassium Level 3.8mmol/L (3.5-5.1) Chloride Level 105mmol/L (97-110) Carbon Dioxide Level 31mmol/L (21-31) Anion Gap 7 (8-16) Blood Urea Nitrogen 10mg/dl (7-20) Creatinine 0.71mg/dl (0.44-1.00) Glucose Level 88mg/dl (70-220) Calcium Level 8.7mg/dl (8.4-10.2) White Blood Count 8.010^3/ul (4.8-10.8) Red Blood Count 4.3610^6/ul (4.20-5.40) Hemoglobin 12.4g/dl (12.0-16.0) Hematocrit 38.8% (37.0-47.0) Mean Corpuscular Volume 89.0fl (82.0-101.0) Mean Corpuscular Hemoglobin 28.4pg (29.0-33.0) Mean Corpuscular Hemoglobin Concent 32.0g/dl (32.0-37.0) Red Cell Distribution Width 13.6% (11.5-14.5) Platelet Count 25817^3/UL (140-415) Mean Platelet Volume 9.7fl (7.4-10.4) Neutrophils % 55.5% (39.0-77.0) Lymphocytes % 33.2% (15.0-51.0) Monocytes % 6.2% (0.0-11.0) Eosinophils % 4.5% (0.0-7.0) Basophils % 0.4% (0.0-2.0) Nucleated Red Blood Cells % 0.0/100WBC (0.0-0.0) Neutrophils # 4.410^3/ul (1.6-7.5) Lymphocytes # 2.710^3/ul (0.8-2.9) Monocytes # 0.510^3/ul (0.3-0.9) Eosinophils # 0.410^3/ul (0.0-0.5) Basophils # 0.010^3/ul (0.0-0.1) Nucleated Red Blood Cells # 0.010^3/ul (0.0-0.0) ADDI RODRIGUEZ Apr 24, 2017 18:53
== END 2017-04-24 18:00 | disposition home or self-care (01) | DRG 734 ==
LOC: REC 09:43 → EEVIPCON 12:30 → MS1 22:00
PROC: 07TC4ZZ Resection of Pelvis Lymphatic, Percutaneous Endoscopic Approach (ICD-10-PCS; 2017-04-21)
PROC: 0UTC4ZZ Resection of Cervix, Percutaneous Endoscopic Approach (ICD-10-PCS; 2017-04-21)
PROC: 0UT24ZZ Resection of Bilateral Ovaries, Percutaneous Endoscopic Approach (ICD-10-PCS; 2017-04-21)
PROC: 0UT74ZZ Resection of Bilateral Fallopian Tubes, Percutaneous Endoscopic Approach (ICD-10-PCS; 2017-04-21)
PROC: 07TD4ZZ Resection of Aortic Lymphatic, Percutaneous Endoscopic Approach (ICD-10-PCS; 2017-04-21)
PROC: 0UT94ZZ Resection of Uterus, Percutaneous Endoscopic Approach (ICD-10-PCS; principal; 2017-04-21 12:30)
DX: C54.1 Malignant neoplasm of endometrium (principal); N39.0 Urinary tract infection, site not specified; Z68.41 Body mass index [BMI] 40.0-44.9, adult; B37.49 Other urogenital candidiasis; E66.01 Morbid (severe) obesity due to excess calories; N13.5 Crossing vessel and stricture of ureter without hydronephrosis; B96.89 Other specified bacterial agents as the cause of diseases classified elsewhere; I10 Essential (primary) hypertension
CPT/HCPCS: 36430; 71010; 80048; 80053; 81001; 85025; 85610; 85730; 86304; 86850; 86900; 86901; 86920; 87086; 88104; 88305; 88307; 93005; J0690; J1100; J1170; J1200; J1644; J1885; J2175; J2250; J2270; J2274; J2710; J2765; J2795; J3010; J3480; J7120; J7999; P9016